=== PATIENT | female | born 1990 | race Caucasian/White ===

== ENCOUNTER 2016-11-21 11:48 | Emergency (ER) | payer SELFPAY ==
[~2016-11-21] VITALS: Ht 149.9 cm; Wt 43.1 kg
[2016-11-21 12:00] VITALS: BP 115/68
--- NOTE | 2016-11-21 12:33 | RAD ---
Indication pain left-sided. A single view of the chest was obtained as well as films targeted to left ribs. No prior imaging of the chest is available. The heart and pulmonary vessels appear normal. The mediastinum appears normal. There is no pleural fluid or pneumothorax. An acute parenchymal infiltrate in either lung is not seen. There are occasional calcified left hilar lymph nodes Films targeted to left ribs appear normal. IMPRESSION: Normal single view chest. Normal plain films left ribs
[2016-11-21] MEDS ORDERED: IBUP200T77 PO (12:37)
--- NOTE | 2016-11-21 12:37 | PHYS DOC ---
Past Medical History Past Medical History: No Pertinent History Past Surgical History: No Surgical History Alcohol Use: None Drug Use: None Adult General Chief Complaint Chief Complaint: RIB PAIN HPI HPI 26-year-old female presenting to the emergency department with left rib pain this started approximate 48 hours ago. The pain as a throbbing nonradiating moderate pain that is worse with deep inspiration and movement of the torso. She denies shortness of breath or abdominal pain. Review of systems was negative for trauma nausea vomiting diaphoresis fevers chills. All other review of systems is negative unless otherwise noted in history of present illness. Review of Systems Review of Systems SEE ABOVE. Allergies Allergies Allergies Coded Allergies Type Severity Reaction Last Updated Verified No Known Drug Allergies 11/21/16 No Physical Exam Physical Exam Constitutional: Well developed, well nourished, no acute distress, non-toxic appearance. HENT: Normocephalic, atraumatic, bilateral external ears normal, oropharynx moist, no oral exudates, nose normal. [] Eyes: PERRLA, EOMI, conjunctiva normal, no discharge. [] Neck: Normal range of motion, no tenderness, supple, no stridor. Cardiovascular:Heart rate regular rhythm, no murmur [] Lungs & Thorax: Bilateral breath sounds clear to auscultation . Palpation of the left thorax shows tenderness without erythema lacerations or ecchymosis. Abdomen: Bowel sounds normal, soft, no tenderness, no masses, no pulsatile masses. Skin: Warm, dry, no erythema, no rash. [] Back: No tenderness, no CVA tenderness. [] Extremities: No tenderness, no cyanosis, no clubbing, ROM intact, no edema. Neurologic: Alert and oriented X 3, normal motor function, normal sensory function, no focal deficits noted. Psychologic: Affect normal, judgement normal, mood normal. [] Current Patient Data Vital Signs Vital Signs Date Time Temp Pulse Resp B/P (MAP) Pulse Ox O2 Delivery O2 Flow Rate FiO2 11/21/16 12:00 98.5 83 18 100 Room Air 98.5 EKG EKG [] Radiology/Procedures Radiology/Procedures [] Course & Med Decision Making Course & Med Decision Making Pertinent Labs and Imaging studies reviewed. (See chart for details) [] 26-year-old female presenting to the emergency department today with left rib pain. Chest x-ray unremarkable. Tenderness to palpation of the chest wall. X -rays obtained which were unremarkable. The patient was then discharged home in stable condition to follow up with their primary care physician over the next 2- 3 days. They were to return if their symptoms worsened or if they were concerned for any reason. [id number] discharge instructions and return precautions were given. Patient's questions were answered to their satisfaction. Patient is comfortable plan. Dragon Disclaimer Dragon Disclaimer This electronic medical record was generated, in whole or in part, using a voice recognition dictation system. Departure Departure Impression: Primary Impression: Left-sided chest wall pain Disposition: HOME, SELF-CARE Condition: STABLE Patient Instructions: Chest Wall Pain, [id number] Additional Instructions: Thank you for allowing us to participate in your care today. Followup with your primary care physician in 3 days if your symptoms do not improve. If you do not have a primary care provider you can ask for a list of our primary care providers. Return to the emergency department you have any new or concerning findings. This should be evaluated by the primary care physician and any necessary consulting services for continued management within a few days after discharge. Return to emergency room if you have any new or concerning symptoms including but not limited to fever, chills, nausea, vomiting, intractable pain, any new rashes, chest pain, shortness of air, uncontrolled bleeding, difficulty breathing, and/or vision loss. Scripts Ibuprofen (IBUPROFEN) 200 Mg Tablet 200 MG PO PRN Q6HRS Y for INFLAMMATION, #30 TAB Prov: SWETHA ASHFORD MD 11/21/16 SWETHA ASHFORD MD November 21, 2016 12:37
== END 2016-11-21 12:49 | disposition home or self-care (01) ==
LOC: ER 12:49
DX: R07.89 Other chest pain (principal)
CPT/HCPCS: 71101; 99284-25

== ENCOUNTER 2017-09-17 08:28 | Emergency (ER) | payer OTHER | END 2017-09-17 08:56 | disposition home or self-care (01) | LOC: ER 08:28 | DX: K04.7 Periapical abscess without sinus (principal); K02.9 Dental caries, unspecified; Z88.0 Allergy status to penicillin | CPT/HCPCS: 99283 ==

== ENCOUNTER 2018-04-29 18:32 | Observation (INO) | payer OTHER ==
[2017-09-17 08:36] VITALS: BP 153/85
[~2018-04-29 18:32] MED LIST: CLIN150C14 PO; IBUP200T77 PO; TRAM-48 PO
[2018-04-29] MEDS ORDERED: IV RINGERS,LACTATED 1000ML 1,000 ML IV SCH (18:35)
[2018-04-29 19:06] LABS: BILIRUBIN,URINE NEGATIVE (NEG); CLARITY,URINE CLEAR; COLOR,URINE YELLOW; NITRITE,URINE NEGATIVE (NEG); PROTEIN,URINE NEGATIVE (NEG-TRACE); UROBILINOGEN,URINE 0.2 mg/dL (0.2 mg/dL)
[2018-04-29 19:14] LABS: AMPHETAMINE/METHAMPHETAMINE NEG (NEG); BARBITURATES NEG (NEG); BENZODIAZEPINES NEG (NEG); CANNABINOIDS NEG (NEG); COCAINE NEG (NEG); METHADONE NEG (NEG); OPIATES NEG (NEG); PHENCYCLIDINE NEG (NEG)
[2018-04-29 19:22] LABS: BACTERIA,URINE MANY /HPF (0-FEW); SQUAMOUS EPITHELIAL CELL,UR MANY /LPF
[2018-04-29 19:47] LABS: AMNIO PT NEGATIVE
[2018-04-29] MEDS ORDERED: hydrOXYzine PAMOATE 25 MG CAPSULE PO ONE (20:15)
[2018-04-29 21:14] LABS: BASO % 1 % (0-3); EOS # 0.2 x10^3/uL (0.0-0.7); EOS % 2 % (0-3); HEMATOCRIT 32.8 % (36.0-47.0); HEMOGLOBIN 11.9 g/dL (12.0-15.5); LYMPH # 1.9 x10^3/uL (1.0-4.8); LYMPH % 23 % (24-48); MEAN CORPUSCULAR HEMOGLOBIN 33 pg (25-35); MEAN CORPUSCULAR HGB CONC 36 g/dL (31-37); MEAN CORPUSCULAR VOLUME 92 fL (79-100); MONO # 0.5 x10^3/uL (0.0-1.1); MONO % 7 % (0-9); NEUT # 5.5 x10^3uL (1.8-7.7); NEUT % 67 % (31-73); PLATELET COUNT 287 x10^3/uL (140-400); RED BLOOD COUNT 3.58 x10^6/uL (3.50-5.40); RED CELL DISTRIBUTION WIDTH 14.8 % (11.5-14.5); WHITE BLOOD COUNT 8.1 x10^3/uL (4.0-11.0)
--- NOTE | 2018-04-29 22:08 | RAD ---
Examination: OB LIMITED History: pt felt like she was leaking fluid
prev care and sono at [facility]
- one

live IUP measuring 34w 5d 2508g +/- 371g
cephalic position
fluid 11.8 c
anterior grade 2 placenta

Comparison/Correlation: None Findings: Limited OB ultrasound exam was performed. Living intrauterine gestation is present. heart rate is 132 bpm. Cephalic lie noted. Average ultrasound age of 34 weeks 5 days identified. Ultrasound EDC is 06/05/2018. Estimated weight is 2508 g +/- 371 g. Cephalic index is 82.6 which is within normal limits. Head circumference to abdominal circumference ratio is 1.01 and this is in normal limits at the 66th percentile. Femur length to biparietal diameter ratio 79 and this is within normal limits. Femur length to head circumference ratio is 21.7 and this is within normal limits. Femur length to abdominal circumference ratio is 21.9 within normal limits. Biparietal diameter is 8.54 cm corresponding to 34 weeks 2 days gestation. Head circumference is 31.17 cm corresponding to 34 week 6 day gestation. Abdominal circumference is 30.89 cm corresponding to 34 weeks 6 day gestation. Femur length is 6.75 cm corresponding to 34 weeks 5 day gestation. Amniotic fluid index is 11.8. Anteriorly located grade 2 placenta is present. Impression: Single living intrauterine gestation of 34 weeks 5 days by average ultrasound age with cephalic lie. Amniotic fluid index of 11.8. Anteriorly located grade 2 placenta. Electronically signed by: Kaz Buchanan MD (04/29/2018 10:05 PM) [facility]
== END 2018-04-29 21:57 | disposition home or self-care (01) ==
LOC: 3 SO LND 18:32
PROVIDERS: ADMIT Obstetrics & Gynecology; ATTEND Obstetrics & Gynecology
DX: O62.9 Abnormality of forces of labor, unspecified (principal); Z3A.36 36 weeks gestation of pregnancy; Z79.899 Other long term (current) drug therapy
CPT/HCPCS: 36415; 76815; 80307; 81001; 84112; 85025; 86592; 86703; 86762; 86850; 86900; 86901; 87086; 87186; 87340; 87653; G0378; G0379; Q0177; G0479

== ENCOUNTER 2020-10-17 21:38 | Emergency (ER) | payer SELFPAY ==
[~2020-10-17] VITALS: Ht 149.9 cm; Wt 41.0 kg
[~2020-10-17 21:38] MED LIST changes: -CLIN150C14 PO; +CLIN150C15 PO
--- NOTE | 2020-10-17 22:03 | PHYS DOC ---
Past Medical History Past Medical History: No Pertinent History Past Surgical History: , Other Additional Past Surgical Histo: DENTAL SX Smoking Status: Current Every Day Smoker Alcohol Use: None Drug Use: None General Adult EDM: Chief Complaint: CHEST PAIN HPI: HPI: Patient is a 30 year old male presents with a chief complaint of left-sided chest discomfort and a knot on her left wrist. Patient states chest discomfort is been ongoing for the last week. Pain is located in her left chest that does not radiate. Patient describes as something pulling on her chest. She states she has an occasional tingling in her face chest pain is exacerbated with deep breaths. Patient also complains of swelling/knot anterior aspect of the distal radius. Review of Systems: Review of Systems: Constitutional: Denies fever or chills. [] Eyes: Denies change in visual acuity. [] HENT: Denies nasal congestion or sore throat. [] Respiratory: Denies cough or shortness of breath. [] Cardiovascular: Positive chest pain GI: Denies abdominal pain, nausea, vomiting, bloody stools or diarrhea. [] : Denies dysuria. [] Musculoskeletal: Denies back pain or joint pain. Positive cyst [] Integument: Denies rash. [] Neurologic: Denies headache, focal weakness or sensory changes. [] Endocrine: Denies polyuria or polydipsia. [] Lymphatic: Denies swollen glands. [] Psychiatric: Denies depression or anxiety. [] Heart Score: C/O Chest Pain: Yes HEART Score for Chest Pain: HEART Score for Chest Pain Response (Comments) Value History Slighlty/Non-Suspicious 0 ECG Normal 0 Age < 45 0 Risk Factors No Risk Factors 0 Troponin < Normal Limit 0 Total 0 Risk Factors: Risk Factors: DM, Current or recent (<one month) smoker, HTN, HLP, family history of CAD, obesity. Risk Scores: Score 0 - 3: 2.5% MACE over next 6 weeks - Discharge Home Score 4 - 6: 20.3% MACE over next 6 weeks - Admit for Clinical Observation Score 7 - 10: 72.7% MACE over next 6 weeks - Early Invasive Strategies Allergies: Allergies: Allergies Coded Allergies Type Severity Reaction Last Updated Verified Penicillins Allergy Intermediate 09/17/17 Yes Physical Exam: PE: General: alert, no acute distress. Skin: warm, dry and intact. Head:: Normocephalic, atraumatic. Neck: Trachea midline. Eyes: EOMI, Normal conjunctiva, No drainage CARDIOVASCULAR: Regular rate and rhythm RESPIRATORY: No respiratory distress Back: Full range of motion. MUSCULOSKELETAL: Full range of motion of bilateral upper and lower extremities. Left wrist ganglion cyst anterior aspect left ulna GASTROINTESTINAL: Abdomen soft without rebound or guarding. NEUROLOGICAL: Alert and noted to person, place and time. No neurological deficits observed Psychiatric: Cooperative. Normal judgment Current Patient Data: Vital Signs: Vital Signs Date Time Temp Pulse Resp B/P (MAP) Pulse Ox O2 Delivery O2 Flow Rate FiO2 10/17/20 21:54 98.4 104 12 142/102 (115) 98 Room Air 98.4 EKG: EKG: EKG performed at 2158 heart rate [address] elevation no ST depression no acute OR [] Radiology/Procedures: Radiology/Procedures: [] Impression: INDICATION: Chest pain TECHNIQUE: Frontal view of the chest Comparisons: 11/21/2016 FINDINGS: The cardiomediastinal silhouette and pulmonary vessels are within normal limits. The lung and pleural spaces are clear. IMPRESSION: No acute cardiopulmonary process. Electronically signed by: Amara Ibanez MD (10/17/2020 10:45 PM) [facility] Course & Med Decision Making: Course & Med Decision Making Pertinent Labs and Imaging studies reviewed. (See chart for details) [] Dragon Disclaimer: Dragwander Disclaimer: This electronic medical record was generated, in whole or in part, using a voice recognition dictation system. Departure Departure Impression: Primary Impression: Chest pain Additional Impression: Ganglion cyst Disposition: HOME / SELF CARE / HOMELESS Condition: STABLE Referrals: NO PCP (PCP) Patient Instructions: Chest Pain (Nonspecific), Ganglion Cyst MARYA HOLLOWAY DO Oct 17, 2020 22:03
--- NOTE | 2020-10-17 22:47 | RAD ---
Exam: Chest one view INDICATION: Chest pain TECHNIQUE: Frontal view of the chest Comparisons: 11/21/2016 FINDINGS: The cardiomediastinal silhouette and pulmonary vessels are within normal limits. The lung and pleural spaces are clear. IMPRESSION: No acute cardiopulmonary process. Electronically signed by: Amara Ibanez MD (10/17/2020 10:45 PM) [facility]
[2020-10-17 23:30] VITALS: BP 113/70
--- NOTE | 2020-10-17 23:45 | EKG ---
[facility] [address] [place] [address] Test Date: 2020-10-17 Test Time: 21:50:50 Pat Name: ROGER POSADA Department: Room: Gender: F Programmer Business: : 1990 Requested By: MARYA HOLLOWAY Order Number: [id number] Reading MD: Measurements Intervals [place] Rate: 72 P: 62 MI: 126 QRS: 79 QRSD: 78 T: 36 QT: 354 QTc: 389 Interpretive Statements SINUS RHYTHM NORMAL ECG RI6.02 No previous ECG available for comparison
== END 2020-10-18 00:25 | disposition home or self-care (01) ==
LOC: ER 21:38
DX: R07.89 Other chest pain (principal); M67.432 Ganglion, left wrist; F17.200 Nicotine dependence, unspecified, uncomplicated; Z88.0 Allergy status to penicillin
CPT/HCPCS: 36415; 71045; 84484; 93005; 99285-25